=== PATIENT | male | born 1930 | race Caucasian/White ===

== ENCOUNTER 2018-08-24 11:55 | Inpatient (IN) | payer OTHER ==
[2018-08-24 13:28] LABS: BASO % 1.5 % (0-2.0); EOS % 0.4 % (0-4.5); HEMATOCRIT 40.1 % (35.4-49); HEMOGLOBIN 13.1 GM/dl (11.7-16.9); MCH 28.9 pg (25.7-33.7); MCHC 32.8 g/dl (32.0-35.9); MEAN CELL VOLUME 88.3 fl (80-96); MEAN PLT VOLUME 9.1 fl (7.5-11.1); MONO % 11.2 % (3.8-10.2); NEUT % 71.9 % (42.8-82.8); PLATELET COUNT 171 K/MM3 (134-434); RBC 4.54 M/mm3 (4.00-5.60); RDW 12.9 % (11.9-15.9); WHITE BLOOD COUNT 5.8 K/mm3 (4.0-10.8)
[2018-08-24 13:43] LABS: ALBUMIN 3.2 g/dl (3.4-5.0); ALK PHOS 62 U/L (45-117); ANION GAP 4 MMOL/L (8-16); BILIRUBIN,TOTAL 0.3 mg/dl (0.2-1); BLOOD UREA NITROGEN 15 mg/dl (7-18); CALCIUM 8.1 mg/dl (8.5-10); CHLORIDE 103 mmol/L (98-107); CO2 30 mmol/L (21-32); CREATININE 0.9 mg/dl (0.55-1.3); GLUCOSE,RANDOM 120 mg/dl (74-106); POTASSIUM 4.2 mmol/L (3.5-5.1); SGOT/AST 94 U/L (15-37); SGPT/ALT 61 U/L (13-61); SODIUM 137 mmol/L (136-145); TOT PROT 6.2 g/dl (6.4-8.2)
[2018-08-24 13:47] LABS: INR 1.06 (0.82-1.09); PROTHROMBIN TIME (PATIENT) 11.9 SEC (10.2-13.0)
--- NOTE | 2018-08-24 15:18 | PDOC ---
History of Present Illness - General Chief Complaint: Respiratory Stated Complaint: COUGH, HEMOPTYSIS Time Seen by Provider: 08/24/18 12:01 History Source: Patient Exam Limitations: No Limitations - History of Present Illness Initial Comments: 08/24/18 15:14 88 yo male h/o prior copd / suspiscion for mass here today c/o hemoptysis. started [address] John . states he has blood with coughing, no f/ c no travel. no weight loss, . did have low grade fever few days ago. no n/v no melena, no other complaints. 08/24/18 17:16 Past History - Past Medical History Allergies/Adverse Reactions: Allergies Allergy/AdvReac Type Severity Reaction Status Date / Time No Known Allergies Allergy Verified 08/24/18 11:59 Home Medications: Ambulatory Orders NK [No Known Home Medication] 08/24/18 COPD: No Other medical history: RHEUMATOID ARTHRITIS - Surgical History Cholecystectomy: Yes - Suicide/Smoking/Psychosocial Hx Smoking History: Never smoked Have you smoked in the past 12 months: No Information on smoking cessation initiated: No Hx Alcohol Use: No Drug/Substance Use Hx: No Substance Use Type: None Hx Substance Use Treatment: No Review of Systems - Review of Systems Constitutional: Yes: Fever. No: Chills, Diaphoresis Respiratory: Yes: Cough, Shortness of Breath, Productive cough, Hemoptysis Cardiac (ROS): No: Chest Pain, Edema ABD/GI: No: Abdominal Distended, Nausea, Indigestion Hematologic/Lymphatic: No: Anemia All Other Systems: Reviewed and Negative *Physical Exam - Vital Signs Last Vital Signs Temp Pulse Resp BP Pulse Ox 98.2 F 86 20 147/80 95 08/24/18 11:55 08/24/18 11:55 08/24/18 11:55 08/24/18 11:55 08/24/18 11:55 - Physical Exam Comments: 08/24/18 15:17 awake alert dry mucous membranes. decreased lung travis bases, no crackles or wheezes. abd soft nt nd. ext wwp no edema. skin warm and dry. Moderate Sedation - Procedure Monitoring Vital Signs: Procedure Monitoring Vital Signs Temperature 98.2 F 08/24/18 11:55 Pulse Rate 86 08/24/18 11:55 Respiratory Rate 20 08/24/18 11:55 Blood Pressure 147/80 08/24/18 11:55 O2 Sat by Pulse Oximetry (%) 95 08/24/18 11:55 Heart Score/ECG Review #1 General ECG Interpretation: Sinus Rhythm, Normal Rate, Normal Intervals, No acute ischemic changes (TWI v1 - v2.) ED Treatment Course - LABORATORY CBC & Chemistry Diagram: 08/24/18 13:15 08/24/18 13:15 - ADDITIONAL ORDERS Additional order review: Laboratory Results 08/24/18 08/24/18 08/24/18 13:15 13:15 13:15 PT with INR 11.9 INR 1.06 PTT (Actin FS) 24.0 L Sodium 137 Potassium 4.2 Chloride 103 Carbon Dioxide 30 Anion Gap 4 L BUN 15 Creatinine 0.9 Creat Clearance w eGFR 79.82 Random Glucose 120 H Calcium 8.1 L Total Bilirubin 0.3 AST 94 H ALT 61 Alkaline Phosphatase 62 Troponin I < 0.03 Total Protein 6.2 L Albumin 3.2 L 08/24/18 13:15 RBC 4.54 MCV 88.3 MCHC 32.8 RDW 12.9 MPV 9.1 Neutrophils % 71.9 D Lymphocytes % 15.0 D Monocytes % 11.2 H D Eosinophils % 0.4 Basophils % 1.5 D - RADIOLOGY Radiology Studies Ordered: Category Date Time Status CHEST CTA [CT] Stat CT Scan 08/24/18 13:17 Ordered CHEST PA & LAT [RAD] Stat Radiology 08/24/18 12:06 Taken Medical Decision Making - Medical Decision Making 08/24/18 15:17 88 yo male here with hemoptysis. differential includes, mass, pe, infection, bronchitis, plan ct chest, labs ekg trop. will brendan require admission. abx for fever, suspected infection 08/24/18 16:54 pt with blood streaked sputum. ct with bronchial thickening and mucoid impaction. covered with ceftriaxone and azithromycin. will admit, consult pulmonary. abx and nebs monitoring 08/24/18 17:11 tp wtih bronchial thickening and mucoid impaction in bronchi, d/w dr burden recommend transfer to [facility], monitored bed due to amount of hemoptysis and possible need for bronchial, potential for worsening bleeding. park, symphony for admission. 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 *DC/Admit/Observation/Transfer Diagnosis at time of Disposition: Bronchitis, Hemoptysis - Discharge Dispostion Condition at time of disposition: Stable Decision to Admit order: Yes - Referrals Referrals: Wing John MD [Primary Care Provider] - - Patient Instructions - Post Discharge Activity
[2018-08-24] MEDS ORDERED: CEFTRIAXONE 1,000 MG in DEXTROSE 5%-WATER - 50 ML IVPB ONE (16:31)
[2018-08-24] MEDS ORDERED: AZITHROMYCIN IVPB 500 MG in DEXTROSE 5%-WATER - 250 ML IVPB ONE (16:32)
[2018-08-24] MEDS ORDERED: cefTRIAXone SODIUM 1 GM VIAL ONE (16:58)
[2018-08-24] MEDS ORDERED: AZITHROMYCIN 500 MG VIAL IVPB ONE ×2 (16:58→17:01)
[2018-08-24 17:21] LABS: PH,URINE 6.5 (4.5-8); URINE APPEARANCE HAZY; URINE BILIRUBIN NEGATIVE (NEGATIVE); URINE COLOR YELLOW; URINE GLUCOSE (UA) NEGATIVE (NEGATIVE); URINE KETONE NEGATIVE (NEGATIVE); URINE PROTEIN 1+ (NEGATIVE); URINE UROBILINOGEN 0.2 (0.2-1.0)
[2018-08-24 17:22] LABS: URINE LEUK ESTERASE NEGATIVE (NEGATIVE); URINE NITRITE NEGATIVE (NEGATIVE)
[2018-08-24 17:32] LABS: URINE BACTERIA 1+ /hpf (NEGATIVE); URINE RBC 0-2 /hpf (0-3); URINE WBC 0-2 (0-2)
[2018-08-24] MEDS ORDERED: methylPREDNISolone NA SUCC 125 MG/2 ML VIAL IVPUSH ONE (17:41)
[2018-08-24] MEDS ORDERED: ACETAMINOPHEN 325 MG TABLET (FP) PO PRN (17:46)
[2018-08-24] MEDS ORDERED: SENNOSIDES 8.6MG TABLET (FP) PO PRN (17:46)
[2018-08-24] MEDS ORDERED: DOCUSATE SODIUM 100 MG CAPSULE (FP) PO PRN (17:46)
[2018-08-24] MEDS ORDERED: methylPREDNISolone NA SUCC 125 MG/2 ML VIAL ONE (17:49)
[2018-08-24] MEDS ORDERED: ALBUTEROL SO4 2.5/IPRATROPIUM 0.5 INH SOL 3 ML VIAL.NEB. NEB ONE (18:08)
[2018-08-24] MEDS: LACTATED RINGERS SOLUTION 1,000 ML IV SCH (19:00)
[2018-08-24] MEDS: ALBUTEROL SO4 2.5/IPRATROPIUM 0.5 INH SOL 3 ML VIAL.NEB. NEB SCH ×2 (19:30→21:30)
--- NOTE | 2018-08-24 21:14 | HP ---
Admitting History and Physical - Primary Care Physician PCP: Wing John - Admission Chief Complaint: "coughing up blood" History of Present Illness: 88 y/o Male with h/o connective tissue disease, recurrent pneumonia and rheumatoid arthritis, who presents to the emergency department with his niece for evaluation of moderate amount of hemoptysis. History obtained from Niece who reports pt had URI and fever 4days ago, his fever resolved within 24hrs, however, he lost his voice and started to intermittently cough up blood. 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 Mr. Millard denied CP/SOB /N/V/KIMBLE or dizziness. He has good mobility and ambulates the hallways of his building twice daily. He consumes 1/2 glass of wine with dinner and does not smoke. [facility] was alerted by home health billing specialist of the patients change in health and she promptly took him to [place] ED for evaluation. In ED: vitals T 98.2, HR 86, RR 20, BP 147/80 O 2 [address] with bronchial thickening and mucoid impaction. Pt treated with ceftriaxone and azithromycin. Decision made to admit for further management. 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 History of Recent Travel: No Home Medications - Allergies Allergies/Adverse Reactions: Allergies Allergy/AdvReac Type Severity Reaction Status Date / Time No Known Allergies Allergy Verified 08/24/18 11:59 - Home Medications Home Medications: Ambulatory Orders NK [No Known Home Medication] 08/24/18 Family Disease History - Family Disease History Family Disease History: Other: Father ( (80s) emphysema), Mother ( ( 74) CVA), Sister ( (79) Parkinson's) Review of Systems - Review of Systems Constitutional: reports: No Symptoms Eyes: reports: No Symptoms HENT: reports: Hearing Loss Neck: reports: No Symptoms Cardiovascular: reports: No Symptoms Respiratory: reports: Cough, Hemoptysis Gastrointestinal: reports: No Symptoms Genitourinary: reports: No Symptoms Breasts: reports: No Symptoms Reported Musculoskeletal: reports: No Symptoms Integumentary: reports: No Symptoms Neurological: reports: Unsteady Gait, Weakness Endocrine: reports: No Symptoms Hematology/Lymphatic: reports: No Symptoms Psychiatric: reports: Other (outbursts of anger) Physical Examination Vital Signs: Vital Signs Temperature 98.3 F 08/24/18 20:40 Pulse Rate 82 08/24/18 20:40 Respiratory Rate 16 08/24/18 20:40 Blood Pressure 158/77 08/24/18 20:40 O2 Sat by Pulse Oximetry (%) 97 08/24/18 20:38 Constitutional: Yes: No Distress, Cachectic, Pallor Eyes: Yes: Conjunctiva Clear, PERRL HENT: Yes: Atraumatic, Normocephalic Neck: Yes: Supple, Trachea Midline Cardiovascular: Yes: Regular Rate and Rhythm Respiratory: Yes: Regular, Other (coarse breath sounds b/l) Gastrointestinal: Yes: Soft, Hypoactive Bowel Sounds ...Rectal Exam: Yes: Deferred Musculoskeletal: Yes: WNL Extremities: Yes: WNL Edema: No Peripheral Pulses WNL: Yes Peripheral Pulses: Left Radial: 2+, Right Radial: 2+, Left Doralis Pedis: 2+, Right Dorsalis Pedis: 2+ Neurological: Yes: Alert, Unsteady Gait, Weakness ...Motor Strength: WNL Psychiatric: Yes: Alert, Oriented (pt is poor historian, pt also appears to have undiagnosed dementia) Labs: CBC, BMP 08/24/18 13:15 08/24/18 13:15 Imaging - Results Chest X-ray: Report Reviewed (CXR 08/24/2018 Chest: Hemoptysis. Cough. 2 views of the chest were submitted. There is a normal heart, unfold aorta, prominent balta, coarse changes with increased markings mainly at the bases with some linear atelectasis or fluid in the fissure at the right base. There are right upper quadrant clips. Increased markings are compatible with bronchiectasis which is well demonstrated on 04/29/2017. An early infiltrate cannot be totally excluded. There are degenerative changes. Correlation recommended. For more complete evaluation, further imaging with CT may be of help. Reported By: Ruy Arthur MD 08/24/18 [id number]) Cat Scan: Report Reviewed (CT chest 08/24/2018 Impression: No CT evidence of pulmonary embolism. In comparison to a prior 2017 CT study interval development of a very small right pleural effusion is noted. As the prior study there is prominent bilateral lower lobe bronchiectasis with concentric bronchial wall thickening and extensive mucoid impaction of the posterior basilar bronchi bilaterally. Mild right middle lobe bronchiectasis. Reported By: Enrique Costello MD 08/24/18 [id number]) EKG: Report Reviewed (EKG 08/24: NSR 75bpm) Problem List - Problems (1) Prophylactic measure Assessment/Plan: chest PT 2L NC OOB to chair with assistance bowel regimen with senna and colace Code(s): Z29.9 - ENCOUNTER FOR PROPHYLACTIC MEASURES, UNSPECIFIED (2) Hemoptysis Assessment/Plan: Pulmonay (Dr. Harrison) consulted continue rocephin and azithromycin ID consulted to guide management Chest Pt for extensive mucoid impaction trend WBC and temp curve f/u sputum and blood cx Code(s): R04.2 - HEMOPTYSIS (3) COPD (chronic obstructive pulmonary disease) Assessment/Plan: 2L NC as needed duonebs PRN dyspnea pulm consult Code(s): J44.9 - CHRONIC OBSTRUCTIVE PULMONARY DISEASE, UNSPECIFIED Qualifiers: COPD type: COPD with acute exacerbation Qualified Code(s): J44.1 - Chronic obstructive pulmonary disease with (acute) exacerbation Assessment/Plan DISPO: Full code HCP: Denia José Miguelikemoshe [phone] (neice_ (nephew: Preet Byrd [phone] or Oren [phone]) Visit type - Emergency Visit Emergency Visit: Yes ED Registration Date: 08/24/18 Care time: The patient presented to the Emergency Department on the above date and was hospitalized for further evaluation of their emergent condition. - New Patient This patient is new to me today: Yes Date on this admission: 08/25/18 - Critical Care Critical Care patient: No
--- NOTE | 2018-08-24 22:52 | EKG ---
Test Reason : Blood Pressure : / mmHG Vent. Rate : 075 BPM Atrial Rate : 075 BPM P-R Int : 186 ms QRS Dur : 070 ms QT Int : 366 ms P-R-T Axes : 063 041 071 degrees QTc Int : 408 ms NORMAL SINUS RHYTHM POSSIBLE LEFT ATRIAL ENLARGEMENT BORDERLINE ECG WHEN COMPARED WITH ECG OF 30-JAN-2015 19:17, NO SIGNIFICANT CHANGE WAS FOUND Confirmed by CHUNG DEMPSEY MD ([id number]) on 08/24/2018 10:51:49 PM Referred By: DR MONROY Confirmed By:CHUNG DEMPSEY MD
[2018-08-25] MEDS: ALBUTEROL SO4 2.5/IPRATROPIUM 0.5 INH SOL 3 ML VIAL.NEB. NEB SCH ×4 (07:35→20:41)
[2018-08-25] MEDS ORDERED: CEFTRIAXONE 1 GM in DEXTROSE 5%-WATER - 50 ML IVPB ONE (08:00)
[2018-08-25] MEDS ORDERED: DEXTROSE 5%-WATER - 50 ML IVPB ONE (08:39)
[2018-08-25] MEDS ORDERED: cefTRIAXone SODIUM 1 GM VIAL ONE (08:39)
[2018-08-25 08:48] LABS: BASO % 0.5 % (0-2.0); HEMATOCRIT 39.3 % (35.4-49); HEMOGLOBIN 13.2 GM/dL (11.7-16.9); LYMPH % 14.5 % (8-40); MCH 29.2 pg (25.7-33.7); MCHC 33.5 g/dl (32.0-35.9); MEAN CELL VOLUME 87.1 fl (80-96); MEAN PLT VOLUME 8.8 fl (7.5-11.1); MONO % 8.7 % (3.8-10.2); NEUT % 76.3 % (42.8-82.8); PLATELET COUNT 165 K/MM3 (134-434); RBC 4.51 M/mm3 (4.00-5.60); RDW 13.7 % (11.9-15.9); WHITE BLOOD COUNT 3.8 K/mm3 (4.0-10.0)
[2018-08-25 09:19] LABS: ANION GAP 7 MMOL/L (8-16); BLOOD UREA NITROGEN 14 mg/dL (7-18); CHLORIDE 105 mmol/L (98-107); CO2 27 mmol/L (21-32); GLUCOSE,RANDOM 119 mg/dL (74-106); MAGNESIUM 2.2 mg/dL (1.8-2.4); PHOSPHOROUS 3.2 mg/dL (2.5-4.9); POTASSIUM 3.9 mmol/L (3.5-5.1); SODIUM 139 mmol/L (136-145)
[2018-08-25] MEDS ORDERED: AZITHROMYCIN IVPB 250 MG in DEXTROSE 5%-WATER - 250 ML IVPB ONE (10:00)
[2018-08-25] MEDS ORDERED: ALBUTEROL SO4 0.083% IH SOL 2.5 MG/3 ML VIAL.NEB. NEB PRN (10:53)
--- NOTE | 2018-08-25 10:58 | PN ---
Physical Exam: SUBJECTIVE: Patient seen and examined ; no complaints; as per nurse no episodes of hemoptysis throughout the night or this am. He denies fever, chills, dysphagia, cp, sob. OBJECTIVE: Vital Signs Period Temp Pulse Resp BP Sys/Azul Pulse Ox Last 24 Hr 97.3 F-98.3 F 73-91 16-22 136-159/65-88 95-99 GENERAL: The patient is awake, alert, oriented '; hard of hearing LUNGS: decreased breath sounds; no wheezes or crackles. HEART: Regular rate and rhythm, S1, S2 without murmur, rub or gallop. ABDOMEN: Soft, nontender, nondistended, normoactive bowel sounds, no guarding, no rebound, no hepatosplenomegaly, no masses. EXTREMITIES: 2+ pulses, warm, well-perfused, no edema. Laboratory Results - last 24 hr 08/24/18 08/24/18 08/24/18 05:42 13:15 13:15 WBC 5.8 RBC 4.54 Hgb 13.1 Hct 40.1 D MCV 88.3 MCH 28.9 D MCHC 32.8 RDW 12.9 Plt Count 171 D MPV 9.1 Absolute Neuts (auto) 4.2 Neutrophils % 71.9 D Lymphocytes % 15.0 D Monocytes % 11.2 H D Eosinophils % 0.4 Basophils % 1.5 D Nucleated RBC % PT with INR 11.9 INR 1.06 PTT (Actin FS) 24.0 L Sodium Potassium Chloride Carbon Dioxide Anion Gap BUN Creatinine Creat Clearance w eGFR Random Glucose Calcium Phosphorus Magnesium Total Bilirubin AST ALT Alkaline Phosphatase Troponin I Total Protein Albumin Urine Color Yellow Urine Appearance Hazy Urine pH 6.5 Ur Specific [place] 1.020 Urine Protein 1+ H Urine Glucose (UA) Negative Urine Ketones Negative Urine Blood Negative Urine Nitrite Negative Urine Bilirubin Negative Urine Urobilinogen 0.2 Ur Leukocyte Esterase Negative Urine RBC 0-2 Urine WBC 0-2 Urine Bacteria 1+ 08/24/18 08/24/18 08/25/18 13:15 13:15 08:35 WBC 3.8 L RBC 4.51 Hgb 13.2 Hct 39.3 D MCV 87.1 MCH 29.2 D MCHC 33.5 RDW 13.7 Plt Count 165 D MPV 8.8 Absolute Neuts (auto) 2.9 Neutrophils % 76.3 Lymphocytes % 14.5 D Monocytes % 8.7 Eosinophils % 0.0 D Basophils % 0.5 Nucleated RBC % 0 PT with INR INR PTT (Actin FS) Sodium 137 Potassium 4.2 Chloride 103 Carbon Dioxide 30 Anion Gap 4 L BUN 15 Creatinine 0.9 Creat Clearance w eGFR 79.82 Random Glucose 120 H Calcium 8.1 L Phosphorus Magnesium Total Bilirubin 0.3 AST 94 H ALT 61 Alkaline Phosphatase 62 Troponin I < 0.03 Total Protein 6.2 L Albumin 3.2 L Urine Color Urine Appearance Urine pH Ur Specific [place] Urine Protein Urine Glucose (UA) Urine Ketones Urine Blood Urine Nitrite Urine Bilirubin Urine Urobilinogen Ur Leukocyte Esterase Urine RBC Urine WBC Urine Bacteria 08/25/18 08:35 WBC RBC Hgb Hct MCV MCH MCHC RDW Plt Count MPV Absolute Neuts (auto) Neutrophils % Lymphocytes % Monocytes % Eosinophils % Basophils % Nucleated RBC % PT with INR INR PTT (Actin FS) Sodium 139 Potassium 3.9 Chloride 105 Carbon Dioxide 27 Anion Gap 7 L BUN 14 Creatinine 1.0 Creat Clearance w eGFR 70.68 Random Glucose 119 H Calcium 8.0 L Phosphorus 3.2 Magnesium 2.2 Total Bilirubin AST ALT Alkaline Phosphatase Troponin I Total Protein Albumin Urine Color Urine Appearance Urine pH Ur Specific [place] Urine Protein Urine Glucose (UA) Urine Ketones Urine Blood Urine Nitrite Urine Bilirubin Urine Urobilinogen Ur Leukocyte Esterase Urine RBC Urine WBC Urine Bacteria Active Medications Generic Name Dose Route Start Last Admin Trade Name Freq PRN Reason Stop Dose Admin Acetaminophen 650 mg 08/24/18 17:46 Tylenol - PO Q6H PRN FEVER Albuterol Sulfate 1 amp 08/25/18 10:53 Ventolin 0.083% Nebulizer Soln - NEB Q3H PRN SHORT OF BREATH/WHEEZING Albuterol/Ipratropium 1 amp 08/24/18 17:45 08/25/18 07:35 Duoneb - NEB 1 amp RQID MARIBEL Administration Docusate Sodium 100 mg 08/24/18 17:46 Colace - PO Q8H PRN CONSTIPATION Guaifenesin 600 mg 08/25/18 11:00 Mucinex - PO BID MARIBEL Lactated Ringer's 1,000 mls @ 42 mls/hr 08/24/18 18:00 08/24/18 19:00 Lactated Ringers Solution IV 42 mls/hr ASDIR MARIBEL Administration Azithromycin 250 mg/ Dextrose 250 mls @ 250 mls/hr 08/25/18 10:00 IVPB 08/25/18 10:59 ONCE ONE Senna 2 tab 08/24/18 17:46 Senna - PO HS PRN CONSTIPATION ASSESSMENT/PLAN: This is an 88 year old male former smoker, hx of PNA, COPD, who 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 #Hemoptysis -has not had episode here in hospital -H/H stable -CTA negative for pulm embolism; +bronchiectasis -kadi pulm; does have long smoking hx will need oupatient f/u monitor CT scan #bronchiectasis; -cont antibiotics -guaifenesin #hx of COPD -does not seem to be in acute exacerbation; not hypoxic -there was not a blood gas drawn to check for hypercapnia or acidemia -patient awake and alert oriented; not coughing; lungs with decreased breath sounds -s/p 125mg IV solumedrol in ED; -breathing 97% on RA -does not have prescribed inhaled broncodilators at home; will need outpatient pulm function testing #Diet: regular VTE: scds'; will hold off on heparin due to recent hx; Visit type - Emergency Visit Emergency Visit: Yes ED Registration Date: 08/24/18 Care time: The patient presented to the Emergency Department on the above date and was hospitalized for further evaluation of their emergent condition. - New Patient This patient is new to me today: Yes Date on this admission: 08/25/18 - Critical Care Critical Care patient: No
--- NOTE | 2018-08-25 11:14 | PN ---
Progress Note (short form) - Note Progress Note: ID CONSULT DICTATED ACUTE EXACERBATION CHRONIC BRONCHIECTASIS R/O BIBASILAR PNEUMONIA AWAIT C/S CONTINUE EMPIRIC CEFTRIAXONE/ ZITHROMAX
--- NOTE | 2018-08-25 11:34 | CONS ---
INFECTIOUS DISEASE CONSULTATION DATE OF CONSULTATION: DATE OF DICTATION: 08/25/2018 The patient is an 88-year-old male with history of COPD and rheumatoid arthritis, who is evaluated for possible lung infection. He was admitted to the hospital on August 24, 2018, with reports of hemoptysis. History was obtained from the chart as well as the patient's home health aide who is present at the time of the examination. She reports that he had had hemoptysis. She had noted blood in the toilet which patient reports he had coughed into. He also reported subjective fever and some shortness of breath. He was admitted to the hospital where a CAT scan of the chest was performed. It showed bilateral lower lobe bronchiectasis and bronchial wall thickening with extensive mucoid impaction of the posterior basilar bronchi. In comparison to the study from 2017, there was interval development of a small right pleural effusion. Cultures were obtained. He was empirically treated with Zithromax and ceftriaxone. At the present time, he is awake and alert. He denies any pain. He denies any chest pain, shortness of breath, cough, or sputum production. He denies any recurrent hemoptysis. The patient lives at home. He has a home health aide. Denies any ill contacts. Home health aide reports that he is up to date with respect to influenza and pneumococcal vaccines. He is a nonsmoker. No recent travel. Last hospitalization at [facility] was in 2014. PAST MEDICAL HISTORY: Positive for COPD, rheumatoid arthritis. ALLERGIES: No known allergies. MEDICATIONS: Include Tylenol, albuterol, Zithromax, ceftriaxone, Colace, methylprednisolone. SOCIAL HISTORY: Lives at home with a home health aide. He is a former smoker, stopped many years ago. No recent travel or pet exposure. SYSTEMS REVIEW: Neurologic: No loss of consciousness, seizure activity, focal weakness. Cardiac: Negative chest pain or palpitations. Respiratory: As per HPI. Gastrointestinal: Negative vomiting or diarrhea. Genitourinary: Negative for urinary tract infection. LABORATORY DATA: White count 3.8; neutrophils 76, lymphocytes 14, monocytes 8; hematocrit 39.3; platelet count is 165. BUN 14, creatinine 1.0. Urinalysis: White cells 0-2. PHYSICAL EXAMINATION: General: He is awake. He is a thin male in no acute distress. His breathing is non-labored. Vital Signs: Temperature 97.5; blood pressure 152/88; pulse 74, regular; respirations 20 per minute. HEENT: Sclerae are anicteric. Heart: Sounds S1, S2. Lungs: Diminished breath sounds bilaterally. No rhonchi, rales, or wheezing. Abdomen: Soft. No tenderness elicited. No mass, rebound, or rigidity. Extremities: Negative for edema. IMPRESSION: 1. Acute exacerbation of chronic lung disease. 2. Rule out superimposed lower lobe pneumonia. 3. Hemoptysis. 4. Leukopenia. Await sepsis workup. Continue empiric antibiotic coverage for community-acquired versus atypical pneumonia with Zithromax and ceftriaxone. Bronchodilators, corticosteroids, pulmonary evaluation. Will follow. Thank you for the kind referral. EVERETT ROCHA M.D. [id number]
--- NOTE | 2018-08-25 12:22 | PN ---
Progress Note (short form) - Note Progress Note: PULMONARY CONSULTATION DICTATED 08/25/18 IMP HEMOPTYSIS EXTENSIVE BRONCHIECTASIS WITH MUCOID IMPACTION RA H/O CONNECTIVE TISSUE DISORDER H/O RECURRENT PNEUMONIA PLAN ABX O2 NEEDED INHALED BRONCHODILATORS QUANTIFY HEMOPTYSIS CHEST PT CULTURES DR MARSH Problem List - Problems (1) Bronchiectasis Code(s): J47.9 - BRONCHIECTASIS, UNCOMPLICATED (2) Hemoptysis Code(s): R04.2 - HEMOPTYSIS (3) Pneumonia Code(s): J18.9 - PNEUMONIA, UNSPECIFIED ORGANISM (4) Weight loss Code(s): R63.4 - ABNORMAL WEIGHT LOSS
--- NOTE | 2018-08-25 13:08 | CONS ---
DATE OF CONSULTATION: 08/25/2018 HISTORY: The patient is an 88-year-old white male with a past medical history of questionable connective tissue disease, rheumatoid arthritis, current pneumonia, bronchiectasis admitted to [facility] with the complaint of hemoptysis. The patient apparently had a URI and a fever 4 days prior to admission. Fever resolved within 24 hours, though apparently he lost his voice and started having a significant cough productive of heme. He denies any chest pain, palpitations, nausea, vomiting, diarrhea, or diaphoresis. He presented to the emergency room with the above. In the ER, he was noted to have a large amount of bloody sputum in his bathroom. He does have weight loss and loss of appetite. There is no history of hemoptysis. There is no history of TB in the past. There is no history of occupational exposures. He was [place] in the [place] History of smoking. Quit years ago. PAST MEDICAL HISTORY: Again, includes rheumatoid arthritis, recurrent pneumonia, connective tissue disorder. REVIEW OF SYSTEMS: Positive hemoptysis, positive cough, positive loss of voice. No chest pain, no palpitations, no shortness of breath. Positive recent fever. No abdominal pain. Positive weight loss. No lower extremity edema. CURRENT MEDICATIONS: Include Tylenol, Zithromax, ceftriaxone, albuterol, DuoNeb, Colace, Senna, Mucinex, and lactated Ringer's. PHYSICAL EXAMINATION: General: The patient is a well-developed, well-nourished white male awake and alert in no acute distress. Vital Signs: He is currently afebrile. Blood pressure 152/88, respiratory rate 20, O2 saturation 97% on room air, temperature 97.5. HEENT: Normocephalic and atraumatic. Neck: Supple. Heart: Regular with S1, S2. Chest: A few crackles at the bases. Abdomen: Soft. Bowel sounds are positive. Extremities: No cyanosis or edema. LABORATORIES: WBC 3.8, hemoglobin 13.2, hematocrit 39.3 with a platelet count of 165,000. INR 1.06. BUN 14, creatinine 1. Chest CTA reveals bilateral lobe bronchiectasis and pulmonary bronchial wall thickening as well as extensive partial opacifications and bibasilar secondary to likely impaction. IMPRESSION: 1. Hemoptysis likely secondary to infected bronchiectasis. 2. Extensive bronchiectasis with extensive mucoid impaction. 3. Rheumatoid arthritis. 4. History of connective tissue disorder. 5. History of recurrent pneumonia. PLAN: Antibiotics as per Infectious Disease. Supplemental O2. Inhaled bronchodilators. Quantify hemoptysis. Chest PT. Obtain cultures. YAMILETH MARSH M.D. [id number]
[2018-08-25] MEDS: guaiFENesin 600 MG TABLET.ER (FP) PO SCH ×2 (13:36→21:05)
[2018-08-25] MEDS: AZITHROMYCIN IVPB 500 MG/250 ML BAG IVPB SCH (14:38)
--- NOTE | 2018-08-25 16:11 | PN ---
Teaching Attending Note Name of Resident: Martha Dunn ATTENDING PHYSICIAN STATEMENT I saw and evaluated the patient. I reviewed the resident's note and discussed the case with the resident. I agree with the resident's findings and plan as documented with exceptions below. SUBJECTIVE: patient seen and examined, no further hemoptysis noted, doing well. OBJECTIVE: Vital Signs Period Temp Pulse Resp BP Sys/Azul Pulse Ox Last 24 Hr 97.3 F-98.3 F 73-91 16-22 135-159/65-88 96-99 Intake & Output 08/22/18 08/23/18 08/24/18 08/25/18 23:59 23:59 23:59 23:59 Intake Total 42 384 Balance 42 384 Weight 106 lb 103 lb 12.8 oz General: sitting in bed in no acute distress Chest: decreased air entry, limited exam, no rales or wheezing appreciated CVS:S1S2 regular Abdomen;Soft, NT, ND Extremities: no edema Home Medications Medication Instructions Recorded NK [No Known Home Medication] 08/24/18 Active Medications Acetaminophen (Tylenol -) 650 mg PO Q6H PRN PRN Reason: FEVER Albuterol Sulfate (Ventolin 0.083% Nebulizer Soln -) 1 amp NEB Q3H PRN PRN Reason: SHORT OF BREATH/WHEEZING Albuterol/Ipratropium (Duoneb -) 1 amp NEB RQID [facility] Last Admin: 08/25/18 15:21 Dose: 1 amp Docusate Sodium (Colace -) 100 mg PO Q8H PRN PRN Reason: CONSTIPATION Guaifenesin (Mucinex -) 600 mg PO BID [facility] Last Admin: 08/25/18 13:36 Dose: 600 mg Lactated Ringer's (Lactated Ringers Solution) 1,000 mls @ 42 mls/hr IV ASDIR [facility] Last Admin: 08/24/18 19:00 Dose: 42 mls/hr Ceftriaxone Sodium 2 gm/ (Dextrose) 100 mls @ 100 mls/hr IVPB DAILY [facility]; Protocol Azithromycin (Zithromax 500mg Ivpb (Pre-Docked)) 500 mg in 250 mls @ 250 mls/ hr IVPB DAILY [facility] Last Admin: 08/25/18 14:38 Dose: 250 mls/hr Senna (Senna -) 2 tab PO HS PRN PRN Reason: CONSTIPATION Laboratory Results - last 24 hr 08/24/18 08/25/18 08/25/18 05:42 08:35 08:35 WBC 3.8 L RBC 4.51 Hgb 13.2 Hct 39.3 D MCV 87.1 MCH 29.2 D MCHC 33.5 RDW 13.7 Plt Count 165 D MPV 8.8 Absolute Neuts (auto) 2.9 Neutrophils % 76.3 Lymphocytes % 14.5 D Monocytes % 8.7 Eosinophils % 0.0 D Basophils % 0.5 Nucleated RBC % 0 Sodium 139 Potassium 3.9 Chloride 105 Carbon Dioxide 27 Anion Gap 7 L BUN 14 Creatinine 1.0 Creat Clearance w eGFR 70.68 Random Glucose 119 H Calcium 8.0 L Phosphorus 3.2 Magnesium 2.2 Urine Color Yellow Urine Appearance Hazy Urine pH 6.5 Ur Specific [place] 1.020 Urine Protein 1+ H Urine Glucose (UA) Negative Urine Ketones Negative Urine Blood Negative Urine Nitrite Negative Urine Bilirubin Negative Urine Urobilinogen 0.2 Ur Leukocyte Esterase Negative Urine RBC 0-2 Urine WBC 0-2 Urine Bacteria 1+ CTA chest results reviewed ASSESSMENT AND PLAN: 88 yom with PMhx of connective tissue disorder, RA, recurrent PNA, admitted with hemoptysis, extensive bronchiectasis with mucoid impaction and suspected CAP -Hemoptysis -Extensive bronchiectasis with mucoid impaction -Suspected CAP -Connective tissue disorder -RA Plan: No further hemoptysis noted. h/h and hemodynamics as tolerated Resume PO as tolerated pulmonary/ID input appreciated Chest PT, nebs, Ceftriaxone/azithromycin day 2. Send PNA studies DVTPPX SCDs given concerns for active bleed PT eval home oxygen needs assessment. Dispo planning in 1-2 days if no further concerns on PO abx Plan discussed with patient and daughter at bedside in detail, all questions answered.
[2018-08-25 16:51] VITALS: BMI 16.6
[2018-08-25] MEDS: LACTATED RINGERS SOLUTION 1,000 ML IV SCH (21:05)
[2018-08-26 06:41] LABS: BASO % 0.3 % (0-2.0); EOS % 0.1 % (0-4.5); HEMATOCRIT 38.6 % (35.4-49); LYMPH % 18.9 % (8-40); MCH 29.4 pg (25.7-33.7); MCHC 33.6 g/dl (32.0-35.9); MEAN CELL VOLUME 87.6 fl (80-96); MEAN PLT VOLUME 9.3 fl (7.5-11.1); MONO % 10.7 % (3.8-10.2); PLATELET COUNT 194 K/MM3 (134-434); RBC 4.41 M/mm3 (4.00-5.60); RDW 13.5 % (11.9-15.9); WHITE BLOOD COUNT 8.2 K/mm3 (4.0-10.0)
[2018-08-26 07:23] LABS: ALBUMIN 3.1 g/dl (3.4-5.0); ALK PHOS 65 U/L (45-117); ANION GAP 7 MMOL/L (8-16); BILIRUBIN,TOTAL 0.4 mg/dL (0.2-1); BLOOD UREA NITROGEN 16 mg/dL (7-18); CALCIUM 7.9 mg/dL (8.5-10.1); CHLORIDE 104 mmol/L (98-107); CO2 26 mmol/L (21-32); CREATININE 0.9 mg/dL (0.55-1.3); GLUCOSE,RANDOM 78 mg/dL (74-106); MAGNESIUM 2.3 mg/dL (1.8-2.4); PHOSPHOROUS 2.5 mg/dL (2.5-4.9); POTASSIUM 3.4 mmol/L (3.5-5.1); SGOT/AST 55 U/L (15-37); SGPT/ALT 58 U/L (13-61); SODIUM 137 mmol/L (136-145); TOT PROT 6.5 g/dl (6.4-8.2)
[2018-08-26] MEDS ORDERED: POTASSIUM CHLORIDE TABS 20 MEQ TABLET.ER (FP) PO ONE (07:25)
[2018-08-26] MEDS: ALBUTEROL SO4 2.5/IPRATROPIUM 0.5 INH SOL 3 ML VIAL.NEB. NEB SCH ×4 (07:40→20:36)
[2018-08-26] MEDS ORDERED: DEXTROSE 5%-WATER 100 ML IVPB ONE (09:44)
[2018-08-26] MEDS ORDERED: AZITHROMYCIN IVPB 500 MG in DEXTROSE 5%-WATER - 250 ML IVPB SCH (10:00)
[2018-08-26] MEDS: guaiFENesin 600 MG TABLET.ER (FP) PO SCH ×2 (10:19→21:35)
[2018-08-26] MEDS: CEFTRIAXONE 2 GM in DEXTROSE 5%-WATER 100 ML IVPB SCH (10:20)
[2018-08-26] MEDS: AZITHROMYCIN IVPB 500 MG/250 ML BAG IVPB SCH (10:22)
--- NOTE | 2018-08-26 11:07 | PN ---
Progress Note, Physician History of Present Illness: pulmonary alert,comfortable,-resp distress,-hemoptysis - Current Medication List Current Medications: Active Medications Acetaminophen (Tylenol -) 650 mg PO Q6H PRN PRN Reason: FEVER Albuterol Sulfate (Ventolin 0.083% Nebulizer Soln -) 1 amp NEB Q3H PRN PRN Reason: SHORT OF BREATH/WHEEZING Albuterol/Ipratropium (Duoneb -) 1 amp NEB RQID [facility] Last Admin: 08/26/18 07:40 Dose: Not Given Docusate Sodium (Colace -) 100 mg PO Q8H PRN PRN Reason: CONSTIPATION Guaifenesin (Mucinex -) 600 mg PO BID [facility] Last Admin: 08/26/18 10:19 Dose: 600 mg Lactated Ringer's (Lactated Ringers Solution) 1,000 mls @ 42 mls/hr IV ASDIR [facility] Last Admin: 08/25/18 21:05 Dose: Not Given Ceftriaxone Sodium 2 gm/ (Dextrose) 100 mls @ 100 mls/hr IVPB DAILY [facility]; Protocol Last Admin: 08/26/18 10:20 Dose: 100 mls/hr Azithromycin (Zithromax 500mg Ivpb (Pre-Docked)) 500 mg in 250 mls @ 250 mls/ hr IVPB DAILY [facility] Last Admin: 08/26/18 10:22 Dose: 250 mls/hr Senna (Senna -) 2 tab PO HS PRN PRN Reason: CONSTIPATION - Objective Vital Signs: Vital Signs Temperature 97.8 F 08/26/18 09:23 Pulse Rate 70 08/26/18 09:23 Respiratory Rate 18 08/26/18 09:23 Blood Pressure 150/78 08/26/18 09:23 O2 Sat by Pulse Oximetry (%) 98 08/25/18 21:00 Constitutional: Yes: Calm, Thin Eyes: Yes: WNL HENT: Yes: WNL Neck: Yes: WNL Cardiovascular: Yes: Regular Rate and Rhythm, S1, S2 Respiratory: Yes: Rales (bibasilar crackles) Gastrointestinal: Yes: Normal Bowel Sounds, Soft Extremities: Yes: WNL Edema: No Labs: CBC, BMP 08/26/18 05:30 08/26/18 05:30 INR, PTT INR 1.06 (0.82-1.09) 08/24/18 13:15 Problem List - Problems (1) Bronchiectasis Code(s): J47.9 - BRONCHIECTASIS, UNCOMPLICATED (2) Hemoptysis Code(s): R04.2 - HEMOPTYSIS (3) Pneumonia Code(s): J18.9 - PNEUMONIA, UNSPECIFIED ORGANISM (4) Weight loss Code(s): R63.4 - ABNORMAL WEIGHT LOSS Assessment/Plan IMP HEMOPTYSIS RESOLVED EXTENSIVE BRONCHIECTASIS WITH MUCOID IMPACTION RA H/O CONNECTIVE TISSUE DISORDER H/O RECURRENT PNEUMONIA PLAN ABX PER ID O2 NEEDED INHALED BRONCHODILATORS CHEST PT DR MARSH Problem List - Problems (1) Bronchiectasis Code(s): J47.9 - BRONCHIECTASIS, UNCOMPLICATED (2) Hemoptysis Code(s): R04.2 - HEMOPTYSIS (3) Pneumonia Code(s): J18.9 - PNEUMONIA, UNSPECIFIED ORGANISM (4) Weight loss Code(s): R63.4 - ABNORMAL WEIGHT LOSS
--- NOTE | 2018-08-26 12:27 | PN ---
Progress Note, Physician History of Present Illness: AWAKE IN BED NO HEMOPTYSIS REPORTED TODAY NO C/O CHEST PAIN / DYSPNEA NO F/C - Current Medication List Current Medications: Active Medications Acetaminophen (Tylenol -) 650 mg PO Q6H PRN PRN Reason: FEVER Albuterol Sulfate (Ventolin 0.083% Nebulizer Soln -) 1 amp NEB Q3H PRN PRN Reason: SHORT OF BREATH/WHEEZING Albuterol/Ipratropium (Duoneb -) 1 amp NEB RQID [facility] Last Admin: 08/26/18 11:20 Dose: Not Given Docusate Sodium (Colace -) 100 mg PO Q8H PRN PRN Reason: CONSTIPATION Guaifenesin (Mucinex -) 600 mg PO BID [facility] Last Admin: 08/26/18 10:19 Dose: 600 mg Lactated Ringer's (Lactated Ringers Solution) 1,000 mls @ 42 mls/hr IV ASDIR [facility] Last Admin: 08/25/18 21:05 Dose: Not Given Ceftriaxone Sodium 2 gm/ (Dextrose) 100 mls @ 100 mls/hr IVPB DAILY [facility]; Protocol Last Admin: 08/26/18 10:20 Dose: 100 mls/hr Azithromycin (Zithromax 500mg Ivpb (Pre-Docked)) 500 mg in 250 mls @ 250 mls/ hr IVPB DAILY [facility] Last Admin: 08/26/18 10:22 Dose: 250 mls/hr Senna (Senna -) 2 tab PO HS PRN PRN Reason: CONSTIPATION - Objective Vital Signs: Vital Signs Temperature 97.8 F 08/26/18 09:23 Pulse Rate 70 08/26/18 09:23 Respiratory Rate 18 08/26/18 09:23 Blood Pressure 150/78 08/26/18 09:23 O2 Sat by Pulse Oximetry (%) 98 08/25/18 21:00 Constitutional: Yes: No Distress Eyes: Yes: Conjunctiva Clear Cardiovascular: Yes: Regular Rate and Rhythm, S1, S2 Respiratory: Yes: Diminished Gastrointestinal: Yes: Normal Bowel Sounds, Soft. No: Tenderness Edema: No Labs: CBC, BMP 08/26/18 05:30 08/26/18 05:30 INR, PTT INR 1.06 (0.82-1.09) 08/24/18 13:15 Assessment/Plan ACUTE EXACERBATION CHRONIC BRONCHIECTASIS HEMOPTYSIS R/O PNEUMONIA CONTINUE EMPIRIC CETRIAXONE/ ZITHROMAX
--- NOTE | 2018-08-26 16:16 | PN ---
Physical Exam: SUBJECTIVE: Patient seen and examined ; no complaints; no episodes of hemoptysis since admission; afebrile; no complaints OBJECTIVE: Vital Signs Period Temp Pulse Resp BP Sys/Azul Pulse Ox Last 24 Hr 97.8 F-98.3 F 70-92 18-20 128-150/70-87 95-98 GENERAL: The patient is awake, alert, and [place] LUNGS: mild crackles at bases HEART: Regular rate and rhythm, S1, S2 without murmur, rub or gallop. ABDOMEN: Soft, nontender, nondistended, normoactive bowel sounds, no guarding, no rebound, no hepatosplenomegaly, no masses. EXTREMITIES: 2+ pulses, warm, well-perfused, no edema. NEUROLOGical AAOx3 PSYCH: Normal mood, normal affect. SKIN: Warm, dry, normal turgor, no rashes or lesions noted Laboratory Results - last 24 hr 08/26/18 08/26/18 08/26/18 05:30 05:30 05:30 WBC 8.2 RBC 4.41 Hgb 13.0 Hct 38.6 MCV 87.6 MCH 29.4 MCHC 33.6 RDW 13.5 Plt Count 194 MPV 9.3 Absolute Neuts (auto) 5.7 Neutrophils % 70.0 Lymphocytes % 18.9 D Monocytes % 10.7 H Eosinophils % 0.1 D Basophils % 0.3 Nucleated RBC % 0 ESR 16 Sodium 137 Potassium 3.4 L Chloride 104 Carbon Dioxide 26 Anion Gap 7 L BUN 16 Creatinine 0.9 Creat Clearance w eGFR 79.82 Random Glucose 78 Calcium 7.9 L Phosphorus 2.5 Magnesium 2.3 Total Bilirubin 0.4 AST 55 H ALT 58 Alkaline Phosphatase 65 Total Protein 6.5 Albumin 3.1 L Active Medications Generic Name Dose Route Start Last Admin Trade Name Freq PRN Reason Stop Dose Admin Acetaminophen 650 mg 08/24/18 17:46 Tylenol - PO Q6H PRN FEVER Albuterol Sulfate 1 amp 08/25/18 10:53 Ventolin 0.083% Nebulizer Soln - NEB Q3H PRN SHORT OF BREATH/WHEEZING Albuterol/Ipratropium 1 amp 08/24/18 17:45 08/26/18 15:16 Duoneb - NEB Not Given RQID [facility] Docusate Sodium 100 mg 08/24/18 17:46 Colace - PO Q8H PRN CONSTIPATION Guaifenesin 600 mg 08/25/18 11:00 08/26/18 10:19 Mucinex - PO 600 mg BID [facility] Administration Ceftriaxone Sodium 2 gm/ 100 mls @ 100 mls/hr 08/26/18 10:00 08/26/18 10:20 Dextrose IVPB 100 mls/hr DAILY [facility] Administration Protocol Azithromycin 500 mg in 250 mls @ 250 mls/hr 08/25/18 14:30 08/26/18 10:22 Zithromax 500mg Ivpb (Pre-Docked) IVPB 250 mls/hr DAILY [facility] Administration Senna 2 tab 08/24/18 17:46 Senna - PO HS PRN CONSTIPATION ASSESSMENT/PLAN: This is an 88 year old male former smoker, hx of PNA, COPD, who presented after nurse home health assistant reported hemoptysis at home; was unable to quantify. #Hemoptysis -has not had episode here in hospital -H/H stable -CTA negative for pulm embolism; +bronchiectasis -kadi pulm; does have long smoking hx will need oupatient f/u monitor CT scan #bronchiectasis with bilateral bibasilar pneumonia -cont antibiotics azithromycin/ceftriazone -guaifenesin #hx of COPD -inhaled bronchodilators #Diet: regular VTE:lovenox Diposition: dc in am Visit type - Emergency Visit Emergency Visit: Yes ED Registration Date: 08/24/18 Care time: The patient presented to the Emergency Department on the above date and was hospitalized for further evaluation of their emergent condition. - New Patient This patient is new to me today: No - Critical Care Critical Care patient: No
--- NOTE | 2018-08-26 16:19 | PN ---
Teaching Attending Note Name of Resident: Martha Dunn ATTENDING PHYSICIAN STATEMENT I saw and evaluated the patient. I reviewed the resident's note and discussed the case with the resident. I agree with the resident's findings and plan as documented. SUBJECTIVE: Mr Millard is without complaint and angry that he cannot go home. Denies cp, sob, n/v, or any other concerns OBJECTIVE: Last Vital Signs Temp Pulse Resp BP Pulse Ox 36.6 C 74 20 147/70 98 08/26/18 14:15 08/26/18 14:15 08/26/18 14:15 08/26/18 14:15 08/25/18 21:00 Gen: nad Pulm: slight bibasilar ronchi CV: rrr w/o m/r/g Abd: +bs, s/nt/nd Ext: no c/c/e ASSESSMENT AND PLAN: Problem List - Problems (1) Pneumonia of both lower lobes Assessment/Plan: -patient found to have bilateral pneumonia -ID note reviewed -continue rocephin and zithromax -plan to change to oral antibiotics tomorrow and discharge home Code(s): J18.9 - PNEUMONIA, UNSPECIFIED ORGANISM Qualifiers: Pneumonia type: due to unspecified organism Qualified Code(s): J18.1 - Lobar pneumonia, unspecified organism (2) Hemoptysis Assessment/Plan: -appreciate pulmonary assistance -resolved Code(s): R04.2 - HEMOPTYSIS
[2018-08-26] MEDS: ENOXAPARIN NA (PORCINE) 40 MG/0.4 ML DISP.SYRIN SQ SCH (18:09)
[2018-08-27 07:30] LABS: BASO % 0.6 % (0-2.0); EOS % 0.5 % (0-4.5); HEMATOCRIT 43.4 % (35.4-49); HEMOGLOBIN 14.7 GM/dL (11.7-16.9); LYMPH % 24.7 % (8-40); MCH 29.8 pg (25.7-33.7); MCHC 33.8 g/dl (32.0-35.9); MEAN CELL VOLUME 88.3 fl (80-96); MEAN PLT VOLUME 9.1 fl (7.5-11.1); MONO % 10.1 % (3.8-10.2); NEUT % 64.1 % (42.8-82.8); PLATELET COUNT 245 K/MM3 (134-434); RBC 4.92 M/mm3 (4.00-5.60); RDW 13.5 % (11.9-15.9); WHITE BLOOD COUNT 6.6 K/mm3 (4.0-10.0)
[2018-08-27] MEDS: ALBUTEROL SO4 2.5/IPRATROPIUM 0.5 INH SOL 3 ML VIAL.NEB. NEB SCH (07:40)
[2018-08-27 08:00] LABS: ANION GAP 5 MMOL/L (8-16); BLOOD UREA NITROGEN 16 mg/dL (7-18); CALCIUM 8.4 mg/dL (8.5-10.1); CHLORIDE 104 mmol/L (98-107); CO2 29 mmol/L (21-32); CREATININE 0.9 mg/dL (0.55-1.3); GLUCOSE,RANDOM 77 mg/dL (74-106); MAGNESIUM 2.5 mg/dL (1.8-2.4); PHOSPHOROUS 2.9 mg/dL (2.5-4.9); POTASSIUM 4.2 mmol/L (3.5-5.1); SODIUM 138 mmol/L (136-145)
[2018-08-27] MEDS ORDERED: DEXTROSE 5%-WATER 100 ML IVPB ONE (08:53)
[2018-08-27] MEDS: ENOXAPARIN NA (PORCINE) 40 MG/0.4 ML DISP.SYRIN SQ SCH (10:09)
[2018-08-27] MEDS: AZITHROMYCIN IVPB 500 MG/250 ML BAG IVPB SCH (10:12)
[2018-08-27] MEDS: guaiFENesin 600 MG TABLET.ER (FP) PO SCH (10:12)
[2018-08-27] MEDS: CEFTRIAXONE 2 GM in DEXTROSE 5%-WATER 100 ML IVPB SCH (10:13)
--- NOTE | 2018-08-27 12:04 | PN ---
Progress Note, Physician History of Present Illness: PULMONARY ALERT,NO DISTRESS,-SOB,-COUGH,-HEMOPTYSIS - Current Medication List Current Medications: Active Medications Acetaminophen (Tylenol -) 650 mg PO Q6H PRN PRN Reason: FEVER Albuterol Sulfate (Ventolin 0.083% Nebulizer Soln -) 1 amp NEB Q3H PRN PRN Reason: SHORT OF BREATH/WHEEZING Albuterol/Ipratropium (Duoneb -) 1 amp NEB RQID [facility] Last Admin: 08/27/18 07:40 Dose: Not Given Docusate Sodium (Colace -) 100 mg PO Q8H PRN PRN Reason: CONSTIPATION Enoxaparin Sodium (Lovenox -) 40 mg SQ DAILY [facility] Last Admin: 08/27/18 10:09 Dose: 40 mg Guaifenesin (Mucinex -) 600 mg PO BID [facility] Last Admin: 08/27/18 10:12 Dose: 600 mg Ceftriaxone Sodium 2 gm/ (Dextrose) 100 mls @ 100 mls/hr IVPB DAILY [facility]; Protocol Last Admin: 08/27/18 10:13 Dose: 100 mls/hr Azithromycin (Zithromax 500mg Ivpb (Pre-Docked)) 500 mg in 250 mls @ 250 mls/ hr IVPB DAILY [facility] Last Admin: 08/27/18 10:12 Dose: 250 mls/hr Senna (Senna -) 2 tab PO HS PRN PRN Reason: CONSTIPATION - Objective Vital Signs: Vital Signs Temperature 98.5 F 08/27/18 06:00 Pulse Rate 76 08/27/18 06:00 Respiratory Rate 18 08/27/18 06:00 Blood Pressure 144/86 08/27/18 06:00 O2 Sat by Pulse Oximetry (%) 97 08/26/18 21:00 Constitutional: Yes: Calm, Cachectic Eyes: Yes: WNL HENT: Yes: WNL Neck: Yes: WNL Cardiovascular: Yes: Regular Rate and Rhythm, S1, S2 Respiratory: Yes: Rales (BIBASILAR CRACKLES) Gastrointestinal: Yes: Normal Bowel Sounds, Soft Extremities: Yes: WNL Edema: No Labs: CBC, BMP 08/27/18 07:00 08/27/18 07:00 INR, PTT INR 1.06 (0.82-1.09) 08/24/18 13:15 Problem List - Problems (1) Bronchiectasis Code(s): J47.9 - BRONCHIECTASIS, UNCOMPLICATED (2) Hemoptysis Code(s): R04.2 - HEMOPTYSIS (3) Pneumonia Code(s): J18.9 - PNEUMONIA, UNSPECIFIED ORGANISM (4) Weight loss Code(s): R63.4 - ABNORMAL WEIGHT LOSS Assessment/Plan IMP HEMOPTYSIS RESOLVED EXTENSIVE BRONCHIECTASIS WITH MUCOID IMPACTION RA H/O CONNECTIVE TISSUE DISORDER H/O RECURRENT PNEUMONIA PLAN PO ABX PER ID O2 NEEDED INHALED BRONCHODILATORS CHEST PT F/U X-RAYS OUTPATIENT DR MARSH Problem List - Problems (1) Bronchiectasis Code(s): J47.9 - BRONCHIECTASIS, UNCOMPLICATED (2) Hemoptysis Code(s): R04.2 - HEMOPTYSIS (3) Pneumonia Code(s): J18.9 - PNEUMONIA, UNSPECIFIED ORGANISM (4) Weight loss Code(s): R63.4 - ABNORMAL WEIGHT LOSS
[2018-08-27 14:46] VITALS: BP 142/87; PULSE 80; TEMP 98.2
--- NOTE | 2018-08-27 15:10 | PN ---
Teaching Attending Note Name of Resident: Martha Dunn ATTENDING PHYSICIAN STATEMENT I saw and evaluated the patient. I reviewed the resident's note and discussed the case with the resident. I agree with the resident's findings and plan as documented. OBJECTIVE: Last Vital Signs Temp Pulse Resp BP Pulse Ox 36.8 C 80 20 142/87 97 08/27/18 10:00 08/27/18 10:00 08/27/18 10:00 08/27/18 10:00 08/27/18 10:00 Gen: nad Pulm: ctab w/o w/r/r CV: rrr w/o m/r/g Abd: +bs, s/nt/nd Ext: no c/c/e CBC, BMP 08/27/18 07:00 08/27/18 07:00 Mr Millard is an 88 year old male who comes in with hemoptysis and was found to have pneumonia. He was admitted to telemetry. He was seen by both ID and pulmonary. He was started on rocephin and zithromax. He was also placed on duonebs. He did not have hemoptysis in the hospital and he significantly improved. He is safe for discharge home to finish full course of antibiotics as an outpatient. Patient was noted to have severe protein calorie malnutrition, this was present on admission. Problem List - Problems (1) Pneumonia of both lower lobes Code(s): J18.9 - PNEUMONIA, UNSPECIFIED ORGANISM Qualifiers: Pneumonia type: due to unspecified organism Qualified Code(s): J18.1 - Lobar pneumonia, unspecified organism (2) Hemoptysis Code(s): R04.2 - HEMOPTYSIS
--- NOTE | 2018-08-27 20:04 | DS ---
Physical Exam: SUBJECTIVE: Patient seen and examined; no complaints ; off NC; eating breakfast OBJECTIVE: Vital Signs Period Temp Pulse Resp BP Sys/Azul Pulse Ox Last 24 Hr 98.2 F-98.7 F 75-88 18-20 142-155/68-87 97-97 PHYSICAL EXAM GENERAL: The patient is awake, alert, and fully oriented, in no acute distress. LUNGS: Breath sounds equal, basilar crackles improved HEART: Regular rate and rhythm, S1, S2 without murmur, rub or gallop. ABDOMEN: Soft, nontender, nondistended, normoactive bowel sounds, no guarding, no rebound, no hepatosplenomegaly, no masses. EXTREMITIES: 2+ pulses, warm, well-perfused, no edema. NEUROLOGICAL: Cranial nerves II through XII grossly intact. Normal speech, gait not observed. PSYCH: Normal mood, normal affect. SKIN: Warm, dry, normal turgor, no rashes or lesions noted. LABS Laboratory Results - last 24 hr 08/27/18 08/27/18 07:00 07:00 WBC 6.6 RBC 4.92 Hgb 14.7 Hct 43.4 MCV 88.3 MCH 29.8 MCHC 33.8 RDW 13.5 Plt Count 245 D MPV 9.1 Absolute Neuts (auto) 4.2 Neutrophils % 64.1 Lymphocytes % 24.7 D Monocytes % 10.1 Eosinophils % 0.5 D Basophils % 0.6 Nucleated RBC % 0 Sodium 138 Potassium 4.2 Chloride 104 Carbon Dioxide 29 Anion Gap 5 L BUN 16 Creatinine 0.9 Creat Clearance w eGFR 79.82 Random Glucose 77 Calcium 8.4 L Phosphorus 2.9 Magnesium 2.5 H HOSPITAL COURSE: Date of Admission:08/24/18 Date of Discharge: 08/27/18 This is a 88year old male, former smoker, hx of PNA, COPD, who presented after nurse home care manager reported hemoptysis at home;found to have b/l derrick PNA with bronchiectasis. HE was treated with duo nebs and IV antibiotics, ceftriaxone and azithromycin. HE will finish antibiotic course on augmentin. NO episodes of hemoptysis while in hospital. CTA negative for PE. Minutes to complete discharge: 35 Discharge Summary Reason For Visit: BRONCHITIS/HEMOPTYSIS Condition: Stable - Instructions Diet, Activity, Other Instructions: resume previous diet and activity. Referrals: Enrique Landin MD [Staff Physician] - Wing John MD [Primary Care Provider] - 1 Week Disposition: HOME - Home Medications Comprehensive Discharge Medication List: Ambulatory Orders Albuterol 2.5/Ipratropium 0.5 [Duoneb -] 1 amp NEB RQID #120 amp 08/27/18 Amox-Tr/K Cl [Augmentin - 875Mg Tablet] 1 tab PO BID #14 tablet 08/27/18 Nebulizer and Compressor [Easy Air Compressor Nebulizer] 1 each ASDIR #1 each 08/27/18 This patient is new to me today: Yes Date on this admission: 08/27/18 Emergency Visit: Yes ED Registration Date: 08/24/18 Care time: The patient presented to the Emergency Department on the above date and was hospitalized for further evaluation of their emergent condition. Critical Care patient: No - Discharge Referral Referred to [facility] Med P.C.: No
== END 2018-08-27 14:52 | disposition home or self-care (01) | DRG 193 ==
LOC: FER 11:55 → J4W 22:10
PROVIDERS: ADMIT Internal Medicine; ATTEND Internal Medicine
DX: J18.1 Lobar pneumonia, unspecified organism (principal); E43 Unspecified severe protein-calorie malnutrition; Z68.1 Body mass index [BMI] 19.9 or less, adult; R64 Cachexia; J90 Pleural effusion, not elsewhere classified; M06.9 Rheumatoid arthritis, unspecified; F03.90 Unspecified dementia, unspecified severity, without behavioral disturbance, psychotic disturbance, mood disturbance, and anxiety; L94.9 Localized connective tissue disorder, unspecified; D72.819 Decreased white blood cell count, unspecified; Z87.891 Personal history of nicotine dependence; J47.9 Bronchiectasis, uncomplicated
CPT/HCPCS: 36415; 71046-TC-FY; 71275-TC; 80048; 80053; 81003; 81015; 83735; 84100; 84484; 85025; 85610; 85651; 85730; 87040; 87086; 87899; 93005; 94640; 94761; 97116-GP; 97161-GP; 99285-25

== ENCOUNTER 2021-01-06 10:40 | Emergency (ER) | payer OTHER ==
[2021-01-06 10:57] VITALS: BP 140/83; PULSE 141; BMI 12.5
[2021-01-06] MEDS ORDERED: SODIUM CHLORIDE 1,000 ML IV STA (11:19)
[2021-01-06 11:24] VITALS: TEMP 99.4
[2021-01-06 11:47] LABS: BASO % 0.2 % (0-2.0); EOS % 0.2 % (0-4.5); HEMATOCRIT 41.2 % (35.4-49); HEMOGLOBIN 12.9 GM/dl (11.7-16.9); LYMPH % 7.2 % (8-40); MCH 27.5 pg (25.7-33.7); MCHC 31.4 g/dl (32.0-35.9); MEAN CELL VOLUME 87.5 fl (80-96); MEAN PLT VOLUME 10.2 fl (7.5-11.1); MONO % 4.4 % (3.8-10.2); PLATELET COUNT 392 10^3/uL (134-434); RBC 4.71 M/mm3 (4.00-5.60); WHITE BLOOD COUNT 9.4 K/mm3 (4.0-10.8)
[2021-01-06 11:55] LABS: ACTIVATED PTT 29.3 SECONDS (25.2-36.5)
[2021-01-06 11:58] LABS: ALK PHOS 64 U/L (45-117); ANION GAP 11 MMOL/L (8-16); BILIRUBIN,TOTAL 0.8 mg/dl (0.2-1); CALCIUM 8.9 mg/dl (8.5-10); CHLORIDE 105 mmol/L (98-107); CO2 30 mmol/L (21-32); GLUCOSE,RANDOM 143 mg/dl (74-106); MAGNESIUM 2.2 mg/dL (1.8-2.4); PHOSPHOROUS 3.4 mg/dl (2.5-4.9); SGOT/AST 14 U/L (15-37); SGPT/ALT 9 U/L (13-61); SODIUM 146 mmol/L (136-145); TOT PROT 7.3 g/dl (6.4-8.2)
[2021-01-06 11:59] LABS: INR 1.24 (0.82-1.09); PROTHROMBIN TIME (PATIENT) 13.7 SEC (10.2-13.0)
[2021-01-06] MEDS ORDERED: SODIUM CHLORIDE 0.9% 500 ML INFUS.BAG IV ONE (13:03)
[2021-01-06] MEDS ORDERED: ACETAMINOPHEN 650 MG/20.3 ML ORAL SOLUTION (CUPS) PO ONE (13:03)
[2021-01-06] MEDS ORDERED: ACETAMINOPHEN 650 MG/20.3 ML ORAL SOLUTION (CUPS) ONE (13:09)
[2021-01-06] MEDS ORDERED: AZITHROMYCIN 200 MG/5 ML BOTTLE PO ONE (13:23)
[2021-01-06] MEDS ORDERED: AZITHROMYCIN 200 MG/5 ML BOTTLE ONE (13:33)
== END 2021-01-06 14:06 | disposition home or self-care (01) ==
LOC: FER 10:40
PROC: 3E0337Z Introduction of Electrolytic and Water Balance Substance into Peripheral Vein, Percutaneous Approach (ICD-10-PCS; principal; 2021-01-06)
DX: J18.9 Pneumonia, unspecified organism (principal)
CPT/HCPCS: 36415; 71045-TC-FY; 80053; 81003; 81015; 82550; 83735; 84100; 84443; 84484; 85025; 85610; 85730; 87086; 93005; 96360; 99284-25